=== PATIENT | male | born 1960 | race African-American/Black ===

== ENCOUNTER 2019-05-08 10:16 | Emergency (ER) | payer MEDICAID, OTHER ==
[~2019-05-08] VITALS: Ht 185.4 cm; Wt 80.0 kg
[2019-05-08] MEDS ORDERED: KETOROLAC 60MG/2ML VIAL IM ONE (11:15)
[2019-05-08 12:58] VITALS: BP 129/84
== END 2019-05-08 13:01 | disposition home or self-care (01) ==
LOC: ER 12:40
DX: S79.912A Unspecified injury of left hip, initial encounter (principal); M23.8X2 Other internal derangements of left knee; V49.9XXA Car occupant (driver) (passenger) injured in unspecified traffic accident, initial encounter; Y93.9 Activity, unspecified; Y92.89 Other specified places as the place of occurrence of the external cause; Y99.8 Other external cause status
CPT/HCPCS: 73502; 73562; 96372; 99284; J1885

== ENCOUNTER 2021-06-04 08:37 | Emergency (ER) | payer MEDICAID ==
[~2021-06-04] VITALS: Ht 185.4 cm; Wt 78.0 kg
[2021-06-04] MEDS ORDERED: ONDANSETRON HCL 4MG/2ML INJ IV STA (11:02)
[2021-06-04] MEDS ORDERED: SODIUM CHLORIDE 0.9% 1,000 ML IV ONE (11:15)
[2021-06-04 11:46] LABS: BASOPHILS % 0.2 % (0.0-2.0); EOSINOPHILS % 0.1 % (0.0-5.0); HEMATOCRIT. 41.4 % (42.0-52.0); HEMOGLOBIN. 13.6 g/dL (14.0-18.0); LYMPHOCYTES % 12.3 % (20.0-50.0); MEAN CORPUSCULAR HEMOGLOBIN 29.4 pg (28.0-32.0); MEAN CORPUSCULAR VOLUME 89.3 fL (80.0-94.0); MEAN PLATELET VOLUME 7.4 fl (7.4-10.4); MONOCYTES % 4.9 % (2.0-8.0); NEUTROPHILS % 82.5 % (40.0-76.0); PLATELET 283 x1000/uL (130-400); RED BLOOD CELL COUNT 4.64 mill/uL (4.7-6.1); RED CELL DISTRIBUTION WIDTH 12.4 % (11.6-14.6)
[2021-06-04 11:52] LABS: CHLORIDE 99 mEq/L (98-107)
[2021-06-04] MEDS ORDERED: POLY17PO3 PO (12:18)
[2021-06-04] MEDS ORDERED: ONDA4TAB5 PO (12:18)
[2021-06-04 12:57] VITALS: BP 147/99
== END 2021-06-04 13:04 | disposition home or self-care (01) ==
LOC: ER 08:37
DX: K59.00 Constipation, unspecified (principal); Z98.890 Other specified postprocedural states
CPT/HCPCS: 36415; 80053; 85025; 93005; 96361; 96374; 99284; J2405; J7030; Z7610